=== PATIENT | male | born 1975 | race Caucasian/White ===

== ENCOUNTER 2019-03-09 12:04 | Emergency (ER) | payer OTHER, SELFPAY ==
[2019-03-09 12:05] VITALS: BP 171/125; PULSE 101; RESP 15; TEMP 37.2; O2SAT 98; BMI 35.4
--- NOTE | 2019-03-09 12:26 | CT_ITS ---
STUDY: CT ABDOMEN AND PELVIS WITH CONTRAST REASON FOR EXAM: Male, 43 years old. Left inguinal pain/left pelvic pain. History of prior bilateral inguinal hernia repair. RADIATION DOSAGE (If Supplied By Facility): CTDIvol = ( 14.18 ) mGy, DLP = ( 919.18 ) mGycm TECHNIQUE: Transaxial images were obtained from the dome of the diaphragm to the symphysis pubis with oral contrast. IV/Oral Isovue 300 100 was administered. Sagittal and coronal images were reconstructed. Individualized dose optimization techniques were used for this CT. COMPARISON: None. FINDINGS: Minimal increased markings in the posterior medial segment of the left lower lobe. This may represent mild atelectasis and/or scarring. The visualized portions of the heart are within normal limits. There is decreased attenuation of the liver consistent with steatosis. Normal gallbladder and extrahepatic biliary system. Normal spleen. Normal pancreas. Normal bilateral adrenal glands. Normal right kidney. Normal left kidney. There is a small hiatal hernia. Normal small intestine. Normal colon. The appendix is visualized and appears normal. Normal abdominal aorta. Normal inferior vena cava. There is borderline retroperitoneal lymphadenopathy with enlarged nodes no greater than 10mm in the short axis diameter. Distended urinary bladder. There is a small umbilical hernia containing fat. Small bilateral inguinal hernias. Nondilated small bowel loops is seen in the right inguinal hernia. Normal osseous structures. CT/Abdomen/Pelvis WITH Contrast IMPRESSION: Distended urinary bladder. Small bilateral inguinal hernias slightly larger on the right side containing nondilated small bowel. Fatty infiltration of the liver. Electronically Signed: Arturo Celis, at 14:36 EST , Service support ,
[2019-03-09 12:40] LABS: Bacteria 0 SEEN /hpf (None Seen); Mucous, Urine 0 SEEN /hpf (<or=2+); Red Blood Cells-Urine 0 SEEN /hpf (0-5); Squamous Epithelial Cells - UA 0 SEEN /hpf (0-5); White Blood Cells 0 SEEN /hpf (0-5)
[2019-03-09 12:42] LABS: Color, Urine Yellow (Yellow); Glucose, Dipstick Normal (Normal); Ketone-Dipstick Negative (Negative); Leukocyte Esterase-Dipstick Negative /ul (Negative); Nitrite-Dipstick Negative (Negative); Occult Blood-Urine Negative /ul (Negative); Protein-Dipstick Negative (Negative); Specific Gravity, Urine 1.005 (1.002-1.030); Urine Bilirubin Dipstick Negative (Negative); Urine Clarity Clear (Clear); Urine Urobilinogen Normal (Normal)
[2019-03-09 12:44] VITALS: BP 171/125; PULSE 101; RESP 15; TEMP 37.2; O2SAT 98
[2019-03-09] MEDS: 0.9% Normal Saline 1,000 ML 125 ML IV (12:55)
[2019-03-09 13:08] LABS: Absolute Lymphocyte Count 2.35 X10^3/uL (0.83-4.51); Absolute Neutrophil Count 4.3 X10^3/uL (2.0-7.7); Basophil# 0.06 X10^3/uL; Basophil% 0.7 % (0-1); Eosinophil# 0.14 X10^3/uL; Eosinophils% 1.7 % (0-5); Hematocrit 46.2 % (40-54); Hemoglobin 14.7 g/dL (13.0-16.5); Lymphocyte # 2.35 X10^3/ul (4.0); Lymphocyte % 29.1 % (19-41); Mean Corp Hgb Conc 31.8 g/dL (32-36); Mean Corpuscular Hgb 28.5 pg (27.0-32.0); Mean Corpuscular Volume 89.7 fL (80-94); Mean Platelet Vol. 10.6 fl (6.2-12.0); Monocyte# 1.12 X10^3/uL; Monocyte% 13.9 % (0-10); NRBC Flagged by Analyzer 0 % (0-5); Neutrophil # 4.33 X10^3/uL (2.7-7.7); Neutrophil % 53.7 % (47-70); Platelet Count 214 K/mm3 (150-450); RBC Distribution Width CV 13.4 % (11.6-14.6); RBC Distribution Width SD 44.5 fl (35.1-43.9); Red Blood Count 5.15 M/mm3 (4.6-6.2); White Blood Count 8.1 K/mm3 (4.4-11.0)
[2019-03-09 13:18] LABS: Anion Gap 6 (5-15); BUN 12 mg/dL (7-18); BUN/Creat Ratio 13.3 RATIO (10-20); Calcium,Total 8.8 mg/dL (8.5-10.1); Chloride 105 mmol/L (98-107); EST Glomerular Filtration Rate 97 mL/min (>60); Est Glom Filt Rate - Afr Amer 117 mL/min (>60); Estimated Creatinine Clearance 107.02 ml/min; Glucose 100 mg/dL (74-106); Sodium Level 140 mmol/L (136-145)
[2019-03-09 13:32] LABS: Lactic Acid 1.4 mmol/L (0.4-2.0)
[2019-03-09 14:46] VITALS: BP 152/104; PULSE 87; RESP 16; O2SAT 99
--- NOTE | 2019-03-09 15:46 | ED.DCSUM_ITS ---
- ER Visit Summary Date of Service: 03/09/19 Chief Complaint: [Abdominal pain] History of Present Illness: The patient is a 43 M [presents to the emergency department with pain in his left groin area x2 to 3 months off and on. Patient states that the pains been continuous over the last 24 hours. Patient has pain with movement of the leg. Patient denies any pain in his back. He denies nausea or vomiting. He denies any fever. He denies any injury. Patient has history of prior hernia repair with mesh 6 or 7 years ago. Denies any blood in stool or black tarry stool.] Physical Examination: [HEENT-PERRLA, EOMI. Cranial nerves II through XII grossly intact. TMs clear. Mucous membranes moist. No adenopathy. Cardiovascular-regular rate and rhythm without murmur or ectopy Lungs-clear to auscultation, chest wall stable without crepitus or subcu emphysema Abdomen-normoactive bowel sounds, soft. Patient has tenderness palpation over the left inguinal lower abdomen that seems to reproduce his pain. I do not palpate any obvious masses. Patient has no rebound, rigidity, or peritoneal signs. No discoloration to the skin noted. exam-patient is a circumcised male. No masses palpated in the inguinal canals. Testicles have a normal lie and they are nontender. Patient has normal cremasteric reflexes. Back exam-he has no tenderness over the lumbar or thoracic spine. Negative straight leg raises. Extremities-intact ?4, normal range of motion, normal pulses, atraumatic] Test Results: [CBC with differential obtained was normal. Chemistries normal. Urinalysis normal. Lactate was 1.4. CT scan of the abdomen pelvis showed distended urinary bladder and small bilateral inguinal hernias the right one contained small amount of small bowel that was nondistended.] Emergency Department Course and Treatment: [Patient was medicated with morphine and Zofran.] Treatment Plan: [Given a prescription for [place] for pain. Patient will be referred to primary care physician transportation specialist for no doc to follow-up within next 3 to 5 days. Patient advised to return if worsening pain, fever, vomiting, or conditions worsen anyway.] Disposition: [Discharged home in stable condition.] Impression: [Abdominal pain-etiology uncertain] This note was generated with [employer] software. It may contain incorrect words, spelling, and punctuation that were not noted in review of the chart prior to signing ED Disposition - Plan for ED Patient: Referrals: Care Physician,No Primary [Primary Care Provider] -
--- NOTE | 2019-03-09 15:49 | ED.DEP ---
ED Disposition - Plan for ED Patient: Instructions: ABDOMINAL PAIN, Unkown Cause, (Male) Prescriptions: Hydrocodone Bitart/Apap 5-325 [[place] 5MG-325MG] 1 tab PO Q4H PRN PRN 2 Days #10 tab PRN Reason: Pain Prescription Printed Referrals: Care Physician,No Primary [Primary Care Provider] - Robbie Villar MD [STAFF PHYSICIAN] - 3-5 Days
[2019-03-09 16:12] VITALS: BP 138/100; PULSE 74; RESP 16; TEMP 37.1; O2SAT 100
== END 2019-03-09 16:14 | disposition home or self-care (01) ==
LOC: ED 12:38
PROVIDERS: Emergency Provider Emergency Medicine
DX: R10.9 Unspecified abdominal pain (principal); K40.20 Bilateral inguinal hernia, without obstruction or gangrene, not specified as recurrent; M79.606 Pain in leg, unspecified; F17.220 Nicotine dependence, chewing tobacco, uncomplicated
CPT/HCPCS: 74177; 80048; 81001; 83605; 85025; 96360; 96361; 99283; J7030; Q9967; A4216; J2405

== ENCOUNTER 2019-04-14 20:41 | Emergency (ER) | payer OTHER, SELFPAY ==
[2019-04-06 16:25] VITALS: BMI 35.4
[2019-04-14 20:42] VITALS: BP 182/121; PULSE 92; RESP 18; TEMP 37; O2SAT 98; BMI 34.9
--- NOTE | 2019-04-14 21:10 | ED.DCSUM_ITS ---
- ER Visit Summary Date of Service: 04/14/19 Chief Complaint: Cough History of Present Illness: The patient is a 43 M who presents with a cough that is been getting progressively worse over the past week. Patient states he has been having some vomiting after his coughing. Patient states that today he has been coughing hard and it is causing some epistaxis. Patient states he was recently started on quinapril for his blood pressure. Patient states his cough is gotten worse since that time. Patient denies any fevers or chills. Patient admits to some pain in his chest with coughing. Patient admits to some nausea and vomiting after coughing. Patient admits to a headache. Patient states he has been having difficulty keeping his blood pressure medicine down today. Physical Examination: Vital signs are stable except for an elevated blood pressure of 182/121. Patient is afebrile. Patient is in no acute distress. Oral mucosa is pink and moist. Nasal mucosa shows some epistaxis from the left nares. Neck is supple. Trachea is midline. There is no JVD. Heart was reg ular rate and rhythm. Lungs are clear and equal bilaterally. Abdomen is soft and nontender. Cranial nerves II through XII are intact. There are no focal motor or sensory deficits noted. Test Results: CBC, basic metabolic profile, PT with INR, and PTT were obtained and were all within normal limits. Troponin was normal. Emergency Department Course and Treatment: Patient was given a dose of labetalol here. Patient's blood pressure improved to 154/108. Patient states his cough and headache was feeling better. Patient was advised that the symptoms may be blood pressure related. Patient was instructed to follow-up with his primary care physician in 3 to 5 days for further evaluation and management of his blood pressure. Patient was also advised that his quinapril may be causing some of his cough. Patient understood and was agreeable with the plan. All questions were answered. Disposition: Discharge home Impression: 1. Cough 2. Hypertension This note was generated with [employer] software. It may contain incorrect words, spelling, and punctuation that were not noted in review of the chart prior to signing ED Disposition - Plan for ED Patient: Disposition: Home or Assisted Living Diagnosis: Cough, Hypertension Instructions: COUGH, Chronic, Uncertain Cause, (Adult), HYPERTENSION, Established Referrals: Care Physician,No Primary [NON-STAFF] - Robbie Villar MD [Primary Care Provider] - 3-5 Days
[2019-04-14 21:29] LABS: Absolute Lymphocyte Count 3.38 X10^3/uL (0.83-4.51); Absolute Neutrophil Count 3.7 X10^3/uL (2.0-7.7); Basophil# 0.06 X10^3/uL; Basophil% 0.7 % (0-1); Eosinophil# 0.19 X10^3/uL; Eosinophils% 2.2 % (0-5); Hematocrit 45.6 % (40-54); Hemoglobin 14.8 g/dL (13.0-16.5); Lymphocyte # 3.38 X10^3/ul (4.0); Lymphocyte % 38.9 % (19-41); Mean Corp Hgb Conc 32.5 g/dL (32-36); Mean Corpuscular Volume 89.2 fL (80-94); Mean Platelet Vol. 10.5 fl (6.2-12.0); Monocyte# 1.34 X10^3/uL; Monocyte% 15.4 % (0-10); NRBC Flagged by Analyzer 0 % (0-5); Neutrophil # 3.66 X10^3/uL (2.7-7.7); Neutrophil % 42.2 % (47-70); Platelet Count 213 K/mm3 (150-450); RBC Distribution Width CV 13.4 % (11.6-14.6); RBC Distribution Width SD 43.9 fl (35.1-43.9); Red Blood Count 5.11 M/mm3 (4.6-6.2); White Blood Count 8.7 K/mm3 (4.4-11.0)
[2019-04-14 21:31] VITALS: BP 169/114; PULSE 92; RESP 18; TEMP 37; O2SAT 98
[2019-04-14 21:50] LABS: Anion Gap 8 (5-15); BUN 10 mg/dL (7-18); BUN/Creat Ratio 10.5 RATIO (10-20); Calcium,Total 8.6 mg/dL (8.5-10.1); Chloride 105 mmol/L (98-107); Creatinine, Serum 0.95 mg/dL (0.70-1.30); EST Glomerular Filtration Rate 91 mL/min (>60); Est Glom Filt Rate - Afr Amer 110 mL/min (>60); Estimated Creatinine Clearance 101.39 ml/min; Glucose 96 mg/dL (74-106); Potassium 3.8 mmol/L (3.5-5.1); Sodium Level 137 mmol/L (136-145)
[2019-04-14 21:56] LABS: International Normalized Ratio 1.1; Prothrombin Time (Protime)PT. 13.7 SECONDS (11.7-14.9)
[2019-04-14 21:57] LABS: Partial Thromboplast Time 29.9 Seconds (24.1-36.2)
[2019-04-14 22:15] VITALS: BP 152/108; PULSE 81; RESP 16; TEMP 37.1; O2SAT 98
[2019-04-14 22:34] VITALS: BP 160/106; PULSE 79; RESP 16; O2SAT 98
== END 2019-04-14 22:35 | disposition home or self-care (01) ==
PROVIDERS: Emergency Provider Emergency Medicine; Family Provider Family Medicine; PCP Family Medicine
DX: R05 Cough (principal); I10 Essential (primary) hypertension; Z72.0 Tobacco use
CPT/HCPCS: 80048; 84484; 85025; 85610; 85730; 96374; 99284; A4216

== ENCOUNTER → 2019-04-29 17:26 | Outpatient (CLI) | payer OTHER, SELFPAY ==
[2019-04-14 20:42] VITALS: BMI 34.9
--- NOTE | 2019-04-29 17:30 | RAD_ITS ---
STUDY: X-RAY CHEST REASON FOR EXAM: Male, 43 years old. Cough TECHNIQUE: PA and lateral views of the chest. COMPARISON: None. FINDINGS: The lungs are clear and expanded. There is no demonstrated pleural abnormality. Normal size heart. Normal mediastinum and peter. Normal visualized pulmonary arteries. Normal visualized aortic arch and descending thoracic aorta. There are diffuse degenerative changes of the visualized thoracic spine. There is healed left sixth rib fracture. There is no demonstrated abnormality of the visualized soft tissue structures of the upper abdomen. RAD/Chest PA and Lateral IMPRESSION: Degenerative changes, as described above. No demonstrated acute cardiopulmonary process. Electronically Signed: Seth Hammer MD at 18:45 EST , Service support ,
[2019-04-29 17:54] LABS: Absolute Lymphocyte Count 3.16 X10^3/uL (0.83-4.51); Absolute Neutrophil Count 3.8 X10^3/uL (2.0-7.7); Basophil# 0.06 X10^3/uL; Basophil% 0.7 % (0-1); Eosinophil# 0.22 X10^3/uL; Eosinophils% 2.5 % (0-5); Hematocrit 44.1 % (40-54); Hemoglobin 14.1 g/dL (13.0-16.5); Lymphocyte # 3.16 X10^3/ul (4.0); Lymphocyte % 36.3 % (19-41); Mean Corpuscular Hgb 28.6 pg (27.0-32.0); Mean Corpuscular Volume 89.5 fL (80-94); Mean Platelet Vol. 10.2 fl (6.2-12.0); Monocyte# 1.42 X10^3/uL; Monocyte% 16.3 % (0-10); NRBC Flagged by Analyzer 0 % (0-5); Neutrophil # 3.79 X10^3/uL (2.7-7.7); Neutrophil % 43.6 % (47-70); Platelet Count 246 K/mm3 (150-450); RBC Distribution Width CV 13.4 % (11.6-14.6); RBC Distribution Width SD 43.8 fl (35.1-43.9); Red Blood Count 4.93 M/mm3 (4.6-6.2); White Blood Count 8.7 K/mm3 (4.4-11.0)
[2019-04-29 18:43] LABS: ALB/GLOB Ratio 0.9 RATIO (0.9-2.4); AST(SGOT) 42 U/L (15-37); Alanine Aminotransfer ALT/SGPT 75 U/L (16-61); Albumin, Serum 3.9 g/dL (3.2-5.0); Alkaline Phosphatase 98 U/L (45-117); Anion Gap 3 (5-15); BUN 16 mg/dL (7-18); BUN/Creat Ratio 14.4 RATIO (10-20); CRP, High Sensitivity Cardiac 3.67 mg/L; Calcium,Total 8.8 mg/dL (8.5-10.1); Chloride 105 mmol/L (98-107); Creatinine, Serum 1.11 mg/dL (0.70-1.30); EST Glomerular Filtration Rate 76 mL/min (>60); Est Glom Filt Rate - Afr Amer 92 mL/min (>60); Globulin 4.4 g/dL (2.2-4.2); Glucose 94 mg/dL (74-106); Potassium 3.8 mmol/L (3.5-5.1); Protein, Total 8.3 g/dL (6.4-8.2); Sodium Level 137 mmol/L (136-145)
[2019-04-30 10:33] LABS: Hepatitis B Surface Antibody Non-Reactive; Hepatitis B Surface Antigen Non-Reactive (Nonreactive); Hepatitis C Antibody Non-Reactive (Nonreactive)
[2019-05-04 05:06] LABS: Hepatitis A AB, Total Negative (Negative); QNTFERON TB Mitogen Value > 10.00 IU/mL (.); QNTFERON TB Nil Value 0.03 IU/mL (.); QNTFERON TB1+ Ag Value 0.82 IU/mL (.); QNTFERON TB2+ Ag Value 0.87 IU/mL (.)
[2019-05-04 09:55] LABS: H. Pylori Antibody (IgG) 0.95 (0.00-0.79); Hepatitis A IgM Antibody Negative (Negative); QNTIFERON TB Positive Criteria Positive (Negative)
== END ==
PROVIDERS: Family Provider Family Medicine; PCP Family Medicine; Referring Provider Family Medicine; Visit Provider Family Medicine
DX: I10 Essential (primary) hypertension (principal); R05 Cough
CPT/HCPCS: 36415; 71046; 80053; 85025; 86141; 86480; 86677; 86706; 86708; 86709; 86803; 87340

== ENCOUNTER → 2020-01-25 16:38 | Outpatient (CLI) | payer OTHER, SELFPAY ==
[2020-01-25 18:02] LABS: ALB/GLOB Ratio 0.9 RATIO (0.9-2.4); AST(SGOT) 55 U/L (15-37); Alanine Aminotransfer ALT/SGPT 90 U/L (16-61); Albumin, Serum 3.8 g/dL (3.2-5.0); Alkaline Phosphatase 91 U/L (45-117); Anion Gap 4 (5-15); BUN 10 mg/dL (7-18); BUN/Creat Ratio 10.9 RATIO (10-20); Calcium,Total 8.4 mg/dL (8.5-10.1); Chloride 104 mmol/L (98-107); Creatinine, Serum 0.92 mg/dL (0.70-1.30); EST Glomerular Filtration Rate 94 mL/min (>60); Est Glom Filt Rate - Afr Amer 114 mL/min (>60); Globulin 4.4 g/dL (2.2-4.2); Glucose 91 mg/dL (74-106); Potassium 3.5 mmol/L (3.5-5.1); Protein, Total 8.2 g/dL (6.4-8.2); Sodium Level 138 mmol/L (136-145)
== END ==
PROVIDERS: PCP Family Medicine; Referring Provider Family Medicine; Visit Provider Family Medicine
DX: L30.1 Dyshidrosis [pompholyx] (principal)
CPT/HCPCS: 36415; 80053

== ENCOUNTER 2021-05-25 14:49 | Outpatient (CLI) | payer BC, SELFPAY | END 2021-05-25 23:59 | disposition home or self-care (01) | LOC: MFPLAB 14:51 → LABSPEC 14:52 | PROVIDERS: PCP Family Medicine; Referring Provider Family Medicine; Visit Provider Family Medicine | DX: U07.1 COVID-19 (principal) | CPT/HCPCS: 87635; U0003; U0005 ==

== ENCOUNTER 2021-06-15 15:04 | Outpatient (CLI) | payer BC, SELFPAY ==
[2021-06-15 17:42] LABS: Absolute Lymphocyte Count 2.78 X10^3/uL (0.83-4.51); Absolute Neutrophil Count 3.7 X10^3/uL (2.0-7.7); Basophil# 0.03 X10^3/uL; Basophil% 0.4 % (0-1); Eosinophil# 0.18 X10^3/uL; Eosinophils% 2.3 % (0-5); Hematocrit 41.4 % (40-54); Hemoglobin 13.8 g/dL (13.0-16.5); Lymphocyte # 2.78 X10^3/ul (0.83-4.51); Lymphocyte % 35.7 % (19-41); Mean Corp Hgb Conc 33.3 g/dL (32-36); Mean Corpuscular Hgb 30.1 pg (27.0-32.0); Mean Corpuscular Volume 90.4 fL (80-94); Mean Platelet Vol. 11.3 fl (6.2-12.0); Monocyte# 1.11 X10^3/uL; Monocyte% 14.2 % (0-10); NRBC Flagged by Analyzer 0 % (0-5); Neutrophil # 3.66 X10^3/uL (2.7-7.7); Platelet Count 263 K/mm3 (150-450); RBC Distribution Width CV 13.9 % (11.6-14.6); Red Blood Count 4.58 M/mm3 (4.6-6.2); White Blood Count 7.8 K/mm3 (4.4-11.0)
[2021-06-15 18:19] LABS: ALB/GLOB Ratio 0.8 RATIO (0.9-2.4); AST(SGOT) 42 U/L (15-37); Alanine Aminotransfer ALT/SGPT 53 U/L (16-61); Albumin, Serum 3.5 g/dL (3.2-5.0); Alkaline Phosphatase 95 U/L (45-117); Anion Gap 5 (5-15); BUN 11 mg/dL (7-18); BUN/Creat Ratio 12.5 RATIO (10-20); Calcium,Total 7.7 mg/dL (8.5-10.1); Chloride 107 mmol/L (98-107); Creatinine, Serum 0.88 mg/dL (0.70-1.30); EST Glomerular Filtration Rate 98 mL/min (>60); Est Glom Filt Rate - Afr Amer 119 mL/min (>60); Globulin 4.4 g/dL (2.2-4.2); Glucose 113 mg/dL (74-106); Magnesium 2.3 mg/dL (1.6-2.6); Potassium 3.4 mmol/L (3.5-5.1); Protein, Total 7.9 g/dL (6.4-8.2); Sodium Level 140 mmol/L (136-145); Thyroid Stim Hormone (TSH) 0.67 uIU/mL (0.358-3.74)
[2021-06-15 18:32] LABS: Microalbumin,Random Urine 18.4 mg/L (NO RANGE EST.); Microalbumin:Creatinine Ratio 11.8 mg/g CRE (<30 mg/g CRE)
== END 2021-06-15 23:59 | disposition home or self-care (01) ==
LOC: MFPLAB 15:08
PROVIDERS: PCP Family Medicine; Referring Provider Family Medicine; Visit Provider Family Medicine
DX: I10 Essential (primary) hypertension (principal); E66.01 Morbid (severe) obesity due to excess calories; R60.0 Localized edema; Z68.36 Body mass index [BMI] 36.0-36.9, adult
CPT/HCPCS: 36415; 80053; 82043; 82570; 83036; 83735; 84443; 85025

== ENCOUNTER → 2021-08-10 | Outpatient (CLI) | payer BC, SELFPAY ==
[2021-08-10 15:32] LABS: Anion Gap 4 (5-15); BUN 26 mg/dL (7-18); Calcium,Total 8.6 mg/dL (8.5-10.1); Chloride 108 mmol/L (98-107); Creatinine, Serum 1.24 mg/dL (0.70-1.30); EST Glomerular Filtration Rate 66 mL/min (>60); Est Glom Filt Rate - Afr Amer 80 mL/min (>60); Glucose 111 mg/dL (74-106); Potassium 4.8 mmol/L (3.5-5.1); Sodium Level 138 mmol/L (136-145)
== END | disposition home or self-care (01) ==
LOC: MFPLAB 12:15
PROVIDERS: PCP Family Medicine; Referring Provider Family Medicine; Visit Provider Family Medicine
DX: I10 Essential (primary) hypertension (principal)
CPT/HCPCS: 36415; 80048

== ENCOUNTER → 2022-02-08 | Outpatient (CLI) | payer BC, SELFPAY ==
[2022-02-08 17:47] LABS: Absolute Lymphocyte Count 3.02 X10^3/uL (0.83-4.51); Absolute Neutrophil Count 4.9 X10^3/uL (2.0-7.7); Basophil# 0.05 X10^3/uL; Basophil% 0.5 % (0-1); Eosinophil# 0.21 X10^3/uL; Eosinophils% 2.2 % (0-5); Hematocrit 36.5 % (40-54); Hemoglobin 12.1 g/dL (13.0-16.5); Lymphocyte # 3.02 X10^3/ul (0.83-4.51); Lymphocyte % 31.5 % (19-41); Mean Corp Hgb Conc 33.2 g/dL (32-36); Mean Corpuscular Hgb 30.7 pg (27.0-32.0); Mean Corpuscular Volume 92.6 fL (80-94); Mean Platelet Vol. 11.2 fl (6.2-12.0); Monocyte# 1.31 X10^3/uL; Monocyte% 13.7 % (0-10); NRBC Flagged by Analyzer 0 % (0-5); Neutrophil # 4.93 X10^3/uL (2.7-7.7); Neutrophil % 51.5 % (47-70); Platelet Count 252 K/mm3 (150-450); RBC Distribution Width CV 12.8 % (11.6-14.6); RBC Distribution Width SD 43.7 fl (35.1-43.9); Red Blood Count 3.94 M/mm3 (4.6-6.2); White Blood Count 9.6 K/mm3 (4.4-11.0)
[2022-02-08 18:22] LABS: Microalbumin,Random Urine 57.3 mg/L (NO RANGE EST.); Microalbumin:Creatinine Ratio 45.1 mg/g CRE (<30 mg/g CRE)
[2022-02-08 18:39] LABS: ALB/GLOB Ratio 0.8 RATIO (0.9-2.4); AST(SGOT) 31 U/L (15-37); Alanine Aminotransfer ALT/SGPT 43 U/L (16-61); Albumin, Serum 3.5 g/dL (3.2-5.0); Alkaline Phosphatase 89 U/L (45-117); Anion Gap 6 (5-15); BUN 21 mg/dL (7-18); BUN/Creat Ratio 16.8 RATIO (10-20); Calcium,Total 8.4 mg/dL (8.5-10.1); Chloride 105 mmol/L (98-107); Cholesterol 154 mg/dL (200); Creatinine, Serum 1.25 mg/dL (0.70-1.30); EST Glomerular Filtration Rate 65 mL/min (>60); Est Glom Filt Rate - Afr Amer 79 mL/min (>60); Globulin 4.4 g/dL (2.2-4.2); Glucose 92 mg/dL (74-106); Potassium 4.5 mmol/L (3.5-5.1); Protein, Total 7.9 g/dL (6.4-8.2); Sodium Level 138 mmol/L (136-145); Triglycerides 109 mg/dL
[2022-02-08 19:20] LABS: Hemoglobin A1c 6.2 % (3.8-5.6)
== END | disposition home or self-care (01) ==
PROVIDERS: PCP Family Medicine; Referring Provider Family Medicine; Visit Provider Family Medicine
DX: E88.81 Metabolic syndrome and other insulin resistance (principal); I10 Essential (primary) hypertension
CPT/HCPCS: 36415; 80053; 82043; 82465; 82570; 83036; 84478; 85025

== ENCOUNTER → 2022-08-23 | Outpatient (CLI) | payer BC, SELFPAY ==
[2022-08-23 16:14] LABS: ALB/GLOB Ratio 0.8 RATIO (0.9-2.4); AST(SGOT) 41 U/L (15-37); Alanine Aminotransfer ALT/SGPT 56 U/L (16-61); Albumin, Serum 3.6 g/dL (3.2-5.0); Alkaline Phosphatase 74 U/L (45-117); Anion Gap 8 (5-15); BUN 24 mg/dL (7-18); BUN/Creat Ratio 17.3 RATIO (10-20); Calcium,Total 8.5 mg/dL (8.5-10.1); Chloride 105 mmol/L (98-107); Creatinine, Serum 1.39 mg/dL (0.70-1.30); EST Glomerular Filtration Rate 58 mL/min (>60); Est Glom Filt Rate - Afr Amer 70 mL/min (>60); Globulin 4.6 g/dL (2.2-4.2); Glucose 83 mg/dL (74-106); Potassium 3.9 mmol/L (3.5-5.1); Protein, Total 8.2 g/dL (6.4-8.2); Sodium Level 140 mmol/L (136-145)
[2022-08-23 16:17] LABS: Absolute Lymphocyte Count 3.34 X10^3/uL (0.83-4.51); Absolute Neutrophil Count 4.8 X10^3/uL (2.0-7.7); Basophil# 0.05 X10^3/uL; Basophil% 0.5 % (0-1); Eosinophil# 0.26 X10^3/uL; Eosinophils% 2.6 % (0-5); Hemoglobin 11.3 g/dL (13.0-16.5); Lymphocyte # 3.34 X10^3/ul (0.83-4.51); Lymphocyte % 33.7 % (19-41); Mean Corp Hgb Conc 31.4 g/dL (32-36); Mean Corpuscular Hgb 29.2 pg (27.0-32.0); Mean Platelet Vol. 10.8 fl (6.2-12.0); Monocyte# 1.43 X10^3/uL; Monocyte% 14.4 % (0-10); NRBC Flagged by Analyzer 0 % (0-5); Neutrophil # 4.76 X10^3/uL (2.7-7.7); Neutrophil % 48.1 % (47-70); Platelet Count 252 K/mm3 (150-450); RBC Distribution Width CV 13.5 % (11.6-14.6); RBC Distribution Width SD 45.9 fl (35.1-43.9); Red Blood Count 3.87 M/mm3 (4.6-6.2); White Blood Count 9.9 K/mm3 (4.4-11.0)
== END | disposition home or self-care (01) ==
LOC: MFPLAB 11:54
PROVIDERS: PCP Family Medicine; Visit Provider Family Medicine
DX: I10 Essential (primary) hypertension (principal)
CPT/HCPCS: 36415; 80053; 85025

== ENCOUNTER → 2022-11-15 | Outpatient (CLI) | payer BC, SELFPAY ==
[2022-11-15 15:09] LABS: Absolute Lymphocyte Count 2.74 X10^3/uL (0.83-4.51); Absolute Neutrophil Count 4.7 X10^3/uL (2.0-7.7); Basophil# 0.05 X10^3/uL; Basophil% 0.6 % (0-1); Eosinophil# 0.31 X10^3/uL; Eosinophils% 3.4 % (0-5); Hematocrit 39.2 % (40-54); Hemoglobin 12.8 g/dL (13.0-16.5); Lymphocyte # 2.74 X10^3/ul (0.83-4.51); Lymphocyte % 30.1 % (19-41); Mean Corp Hgb Conc 32.7 g/dL (32-36); Mean Corpuscular Hgb 30.5 pg (27.0-32.0); Mean Corpuscular Volume 93.6 fL (80-94); Mean Platelet Vol. 10.9 fl (6.2-12.0); Monocyte# 1.25 X10^3/uL; Monocyte% 13.8 % (0-10); NRBC Flagged by Analyzer 0 % (0-5); Neutrophil # 4.68 X10^3/uL (2.7-7.7); Neutrophil % 51.4 % (47-70); Platelet Count 231 K/mm3 (150-450); RBC Distribution Width CV 14.4 % (11.6-14.6); RBC Distribution Width SD 49.3 fl (35.1-43.9); Red Blood Count 4.19 M/mm3 (4.6-6.2); White Blood Count 9.1 K/mm3 (4.4-11.0)
[2022-11-15 15:37] LABS: ALB/GLOB Ratio 0.8 RATIO (0.9-2.4); AST(SGOT) 55 U/L (15-37); Alanine Aminotransfer ALT/SGPT 84 U/L (16-61); Albumin, Serum 3.3 g/dL (3.2-5.0); Alkaline Phosphatase 78 U/L (45-117); Anion Gap 6 (5-15); BUN 12 mg/dL (7-18); BUN/Creat Ratio 11.7 RATIO (10-20); Calcium,Total 8.3 mg/dL (8.5-10.1); Chloride 109 mmol/L (98-107); Creatinine, Serum 1.03 mg/dL (0.70-1.30); EST Glomerular Filtration Rate 82 mL/min (>60); Est Glom Filt Rate - Afr Amer 99 mL/min (>60); Globulin 4.4 g/dL (2.2-4.2); Glucose 82 mg/dL (74-106); Potassium 3.8 mmol/L (3.5-5.1); Protein, Total 7.7 g/dL (6.4-8.2); Sodium Level 141 mmol/L (136-145)
[2022-11-15 15:45] LABS: Microalbumin,Random Urine 27.5 mg/L (NO RANGE EST.); Microalbumin:Creatinine Ratio 9.2 mg/g CRE (<30 mg/g CRE)
[2022-11-15 17:24] LABS: Hemoglobin A1c 5.8 % (3.8-5.6)
== END | disposition home or self-care (01) ==
LOC: MTLAB 13:12
PROVIDERS: PCP Family Medicine; Referring Provider Family Medicine; Visit Provider Family Medicine
DX: I10 Essential (primary) hypertension (principal); E88.81 Metabolic syndrome and other insulin resistance
CPT/HCPCS: 36415; 80053; 82043; 82570; 83036; 85025

== ENCOUNTER → 2022-11-21 | Outpatient (CLI) | payer BC, SELFPAY ==
[2022-11-21 18:10] LABS: ALB/GLOB Ratio 0.8 RATIO (0.9-2.4); AST(SGOT) 48 U/L (15-37); Alanine Aminotransfer ALT/SGPT 64 U/L (16-61); Albumin, Serum 3.5 g/dL (3.2-5.0); Alkaline Phosphatase 78 U/L (45-117); Anion Gap 7 (5-15); BUN 12 mg/dL (7-18); BUN/Creat Ratio 10.9 RATIO (10-20); Calcium,Total 8.4 mg/dL (8.5-10.1); Chloride 108 mmol/L (98-107); EST Glomerular Filtration Rate 76 mL/min (>60); Est Glom Filt Rate - Afr Amer 91 mL/min (>60); Globulin 4.3 g/dL (2.2-4.2); Glucose 122 mg/dL (74-106); Potassium 3.2 mmol/L (3.5-5.1); Protein, Total 7.8 g/dL (6.4-8.2); Sodium Level 141 mmol/L (136-145)
[2022-11-21 18:45] LABS: Absolute Lymphocyte Count 2.69 X10^3/uL (0.83-4.51); Absolute Neutrophil Count 5.2 X10^3/uL (2.0-7.7); Basophil# 0.05 X10^3/uL; Basophil% 0.5 % (0-1); Eosinophil# 0.16 X10^3/uL; Eosinophils% 1.7 % (0-5); Hematocrit 38.1 % (40-54); Hemoglobin 12.2 g/dL (13.0-16.5); Lymphocyte # 2.69 X10^3/ul (0.83-4.51); Lymphocyte % 28.7 % (19-41); Mean Corpuscular Hgb 29.8 pg (27.0-32.0); Mean Corpuscular Volume 93.2 fL (80-94); Mean Platelet Vol. 11.1 fl (6.2-12.0); Monocyte# 1.22 X10^3/uL; NRBC Flagged by Analyzer 0 % (0-5); Neutrophil % 55.7 % (47-70); Platelet Count 229 K/mm3 (150-450); RBC Distribution Width CV 14.4 % (11.6-14.6); RBC Distribution Width SD 49.6 fl (35.1-43.9); Red Blood Count 4.09 M/mm3 (4.6-6.2); White Blood Count 9.4 K/mm3 (4.4-11.0)
[2022-11-21 20:31] LABS: Hemoglobin A1c 5.8 % (3.8-5.6)
== END | disposition home or self-care (01) ==
LOC: MFPLAB 16:54
PROVIDERS: PCP Family Medicine; Visit Provider Family Medicine
DX: E88.81 Metabolic syndrome and other insulin resistance (principal); I10 Essential (primary) hypertension; R79.89 Other specified abnormal findings of blood chemistry
CPT/HCPCS: 36415; 80053; 83036; 85025

== ENCOUNTER → 2022-11-29 | Outpatient (CLI) | payer SELFPAY | END | disposition home or self-care (01) | LOC: MFPLAB 11:41 | PROVIDERS: PCP Family Medicine; Visit Provider Family Medicine | DX: R69 Illness, unspecified (principal) ==

== ENCOUNTER → 2023-08-05 | Outpatient (CLI) | payer BC, SELFPAY ==
--- NOTE | 2023-08-05 14:27 | VDLE_ITS ---
Reason For Study: pain RIGHT LEFT GSV is normal. CFV is compressible, spontaneous, phasic, CFV is compressible, spontaneous, phasic, competent, and demonstrates normal competent and demonstrates normal augmentation. augmentation. FV is compressible, spontaneous, phasic, competent and demonstrates normal augmentation. POP V is compressible, spontaneous, phasic, competent and demonstrates normal augmentation. T/P Trunk is compressible. PTV is compressible. RT PerV is compressible. Procedure This is a venous duplex using B-mode, color flow and spectral Doppler. Exam performed in department. The exam was diagnostic. A preliminary report was called and/or faxed to Carley Higginbotham. VL/Venous Duplex US, Unilateral Interpretation Summary Deep veins of the right lower extremity are patent and compressible segmentally . There is no evidence of right lower extremity deep vein thrombosis. The right great sapheno us vein appears patent and compressible segmentally. Ordering Physician: Carley Higginbotham Performed By: Valente Dorado RVT and Student
== END | disposition home or self-care (01) ==
LOC: CVS 14:25
PROVIDERS: PCP Family Medicine; Referring Provider Nurse Practitioner Family; Visit Provider Nurse Practitioner Family
DX: M79.604 Pain in right leg (principal)
CPT/HCPCS: 93971

== ENCOUNTER → 2023-08-07 | Outpatient (CLI) | payer BC, SELFPAY ==
[2023-08-07 18:10] LABS: Absolute Lymphocyte Count 1.91 X10^3/uL (0.83-4.51); Absolute Neutrophil Count 7.1 X10^3/uL (2.0-7.7); Basophil# 0.06 X10^3/uL; Basophil% 0.6 % (0-1); Hematocrit 38.2 % (40-54); Hemoglobin 12.3 g/dL (13.0-16.5); Lymphocyte # 1.91 X10^3/ul (0.83-4.51); Lymphocyte % 19.2 % (19-41); Mean Corp Hgb Conc 32.2 g/dL (32-36); Mean Corpuscular Hgb 29.2 pg (27.0-32.0); Mean Corpuscular Volume 90.7 fL (80-94); Mean Platelet Vol. 11.3 fl (6.2-12.0); Monocyte# 0.72 X10^3/uL; Monocyte% 7.2 % (0-10); NRBC Flagged by Analyzer 0 % (0-5); Neutrophil # 7.09 X10^3/uL (2.7-7.7); Neutrophil % 71.2 % (47-70); Platelet Count 241 K/mm3 (150-450); RBC Distribution Width CV 14.3 % (11.6-14.6); RBC Distribution Width SD 47.4 fl (35.1-43.9); Red Blood Count 4.21 M/mm3 (4.6-6.2)
[2023-08-07 18:45] LABS: ALB/GLOB Ratio 0.9 RATIO (0.9-2.4); AST(SGOT) 37 U/L (15-37); Alanine Aminotransfer ALT/SGPT 56 U/L (16-61); Albumin, Serum 3.6 g/dL (3.2-5.0); Alkaline Phosphatase 80 U/L (45-117); Anion Gap 5 (5-15); BUN 18 mg/dL (7-18); BUN/Creat Ratio 15.5 RATIO (10-20); CRP 4.96 mg/L (0.0-3.0); Calcium,Total 8.4 mg/dL (8.5-10.1); Chloride 105 mmol/L (98-107); Creatinine, Serum 1.16 mg/dL (0.70-1.30); EST Glomerular Filtration Rate 71 mL/min (>60); Est Glom Filt Rate - Afr Amer 86 mL/min (>60); Globulin 4.2 g/dL (2.2-4.2); Glucose 174 mg/dL (74-106); Potassium 3.5 mmol/L (3.5-5.1); Protein, Total 7.8 g/dL (6.4-8.2); Sodium Level 138 mmol/L (136-145)
== END | disposition home or self-care (01) ==
LOC: MFPLAB 15:03
PROVIDERS: PCP Family Medicine; Visit Provider Family Medicine
DX: I10 Essential (primary) hypertension (principal); J18.9 Pneumonia, unspecified organism
CPT/HCPCS: 36415; 80053; 85025; 86140

== ENCOUNTER 2023-08-10 15:24 | Emergency (ER) | payer BC, SELFPAY ==
[2023-08-10] VITALS (14 sets, daily range): BP systolic 154–163; BP diastolic 95–122; PULSE 104–114; RESP 17–23; TEMP 36.1–36.8; O2SAT 93–98; BMI 37.6
--- NOTE | 2023-08-10 15:44 | CT_ITS ---
STUDY: CT Abdomen And Pelvis W/ Contrast Injection 08/10/2023 5:34 PM REASON FOR EXAM: Male, 47 years old. ABDOMINAL PAIN abdominal pain umbilical hernia TECHNIQUE: Transaxial images were obtained without oral contrast, and IV 100mL Isovue-370 intravenous contrast. Individualized dose optimization techniques were used for this CT. COMPARISON: None FINDINGS: The visualized lung bases are unremarkable. The visualized portions of the heart are within normal limits. Unremarkable liver. Unremarkable gallbladder and extrahepatic biliary system. Unremarkable spleen. Unremarkable pancreas. Unremarkable bilateral adrenal glands. No acute findings of the right kidney. No acute findings of the left kidney. Retroaortic left renal vein. Unremarkable visualized stomach. Unremarkable small intestine. There are multiple colonic diverticula consistent with diverticulosis. The appendix is visualized and appears unremarkable. There are no acute findings of the abdominal aorta. Unremarkable inferior vena cava. Subcentimeter mesenteric lymph nodes. The urinary bladder is distended. This can suggest urinary retention. Unremarkable abdominal wall. There are diffuse degenerative changes of the visualized lumbar spine. CT/Abdomen/Pelvis W IV Cont ONLY IMPRESSION: (NOT LISTED IN ORDER OF SIGNIFICANCE) The urinary bladder is distended. This can suggest urinary retention. Other findings as above. Electronically Signed: Brandon Marlow MD at 17:36 EDT ,
--- NOTE | 2023-08-10 15:44 | EKG12_ITS ---
Test Reason : EDEMA Blood Pressure : / mmHG Vent. Rate : 118 BPM Atrial Rate : 118 BPM P-R Int : 128 ms QRS Dur : 092 ms QT Int : 352 ms P-R-T Axes : 069 037 061 degrees QTc Int : 493 ms Sinus tachycardia Otherwise normal ECG Confirmed by Jhony Bloom ([id number]), commercial production editor NANDO ZAMUDIO ([id number]) on 08/11/2023 10:00:00 AM Referred By: Confirmed By:Jhony Bloom
--- NOTE | 2023-08-10 15:45 | EX.ED.DYSGE1 ---
HPI History of Present Illness Chief Complaint: Edema Informant: patient and spouse/S.O. Narrative Narrative: 47-year-old male presenting to the emergency room with umbilical hernia pain and right leg swelling. Patient states that on 30 July he noticed that his right leg was significantly more swollen than his left leg. He has had some swelling in the legs but the right leg is significantly worse. He also noticed that his umbilical hernia which she has had repaired in the past began to hurt him. He has not had any constipation nausea vomiting. No fevers. He states that on Friday he saw a nurse practitioner who obtained a duplex ultrasound that was negative and he was placed on prednisone and Flexeril. He had blood work drawn later in the week to ensure normal creatinine CRP and for normal white count hemoglobin at 12 (baseline for patient). He is currently denying any shortness of breath. He denies any known cardiac history other than hypertension. He does not have a diagnosis of sleep apnea. He does not feel more bloated than normal. He notes normal urination. [facility] Medical History Acute bronchitis, unspecified Acute maxillary sinusitis, unspecified Arthritis Contact with and (suspected) exposure to other viral communicable diseases Groin pain, chronic, left Hay fever Hypertension Home Medications diphenhydramine HCl 25 mg capsule (Benadryl) 25 mg PO QHS 04/23/20 [History Last Taken Unknown] cetirizine 10 mg tablet (24Hour Allergy) 10 mg PO DAILY PRN allergy symptoms 08/10/23 [History Last Taken Unknown] cyclobenzaprine 5 mg tablet 5 mg PO Q8H PRN muscle relaxer 08/10/23 [History Last Taken Unknown] furosemide 40 mg tablet (Lasix) 40 mg PO BID #14 tabs 08/10/23 [Rx Last Taken Unknown] ibuprofen 800 mg tablet (IBU) 800 mg PO Q8H 08/10/23 [History Last Taken Unknown] omeprazole magnesium 20 mg tablet,delayed release (Prilosec OTC) 40 mg PO DAILY 08/10/23 [History Last Taken Unknown] simethicone 180 mg capsule (Gas Relief (simethicone)) 180 mg PO DAILY PRN gas 08/10/23 [History Last Taken Unknown] spironolactone 25 mg-hydrochlorothiazide 25 mg tablet 0.5 tab PO DAILY 08/10/23 [History Last Taken Unknown] telmisartan 40 mg tablet 40 mg PO DAILY 08/10/23 [History Last Taken Unknown] Allergy/AdvReac Type Severity Reaction Status Date / Time cat dander Allergy Mild NEEDS Verified 08/10/23 17:32 FOLLOW-UP Environmental Allergies: Allergy Mild NEEDS Verified 08/10/23 17:32 Uncoded FOLLOW-UP [dust] Penicillins AdvReac Mild Hives Verified 08/10/23 17:32 Surgical History History of hernia repair S/P tonsillectomy Social History Smoking Status: Current every day smoker tobacco type: cigarettes Smokeless tobacco user: chewing tobacco alcohol intake: current alcohol intake frequency: 3 or more drinks per day Alcohol type: beer and hard liquor ROS ROS ED Constitutional Constitutional ED: Denies chills or weight loss Eyes Eyes: Denies change in vision or diplopia ENT ENT ED: Denies ear pain, rhinorrhea or sore throat Cardiovascular Cardiovascular: Denies chest pain, orthopnea, palpitations or racing heartbeat Respiratory/Chest Respiratory/Chest: Denies cough, dyspnea or orthopnea Gastrointestinal Gastrointestinal: Reports abdominal pain; Denies diarrhea, nausea or vomiting Genitourinary Genitourinary ED: Denies dysuria, hematuria or urinary frequency Musculoskeletal Musculoskeletal: Reports other Details: Right greater than left leg swelling ; Denies arthralgias or myalgias Integumentary Denies abscess or rash Neurologic Neurologic: Denies headache(s) or weakness Psychiatric Psychiatric: Denies anxiety, depression, suicidal ideation or suicidal thoughts Endocrine Endocrinology: Denies polydipsia, polyphagia or polyuria Allergic/Immunologic Allergic/Immunologic ED: Denies mouth swelling, tongue swelling or urticaria EXAM Physical Exam Const Vital Signs: 08/10/23 15:25 08/10/23 16:01 08/10/23 16:15 Temperature 98.3 F Temperature Source Temporal Pulse Rate 112 H 111 H Respiratory Rate 20 H 19 H Respiratory Effort Normal Respiratory Pattern Normal Blood Pressure 159/108 H Blood Pressure Mean 125 Pulse Ox 98 95 Oxygen Delivery Method Room Air 08/10/23 16:30 08/10/23 16:45 08/10/23 17:00 Temperature Temperature Source Pulse Rate 104 H 112 H Respiratory Rate 22 H 17 Respiratory Effort Respiratory Pattern Blood Pressure 163/105 H 156/122 H Blood Pressure Mean 122 133 Pulse Ox 94 94 Oxygen Delivery Method 08/10/23 17:15 08/10/23 17:30 08/10/23 17:45 Temperature Temperature Source Pulse Rate 111 H 113 H 114 H Respiratory Rate 20 H 19 H 20 H Respiratory Effort Respiratory Pattern Blood Pressure 162/109 H Blood Pressure Mean 124 Pulse Ox 96 94 94 Oxygen Delivery Method 08/10/23 18:00 08/10/23 18:15 08/10/23 18:30 Temperature Temperature Source Pulse Rate 105 H 108 H 106 H Respiratory Rate 23 H 19 H 22 H Respiratory Effort Respiratory Pattern Blood Pressure 154/95 H 156/106 H Blood Pressure Mean 112 120 Pulse Ox 93 93 Oxygen Delivery Method 08/10/23 18:45 08/10/23 19:00 08/10/23 19:13 Temperature 97 F L Temperature Source Pulse Rate 108 H 104 H 110 H Respiratory Rate 22 H 17 21 H Respiratory Effort Respiratory Pattern Blood Pressure 163/110 H Blood Pressure Mean 127 Pulse Ox 95 96 94 Oxygen Delivery Method Positive well nourished, well developed and obese General Appearance ED: well developed Nutritional Appearance: obese HEENT Reports normocephalic, head/scalp atraumatic and moist mucous membranes Eyes PERRL and EOMs intact bilaterally Neck no lymphadenopathy, supple and no JVD Resp normal respiratory effort and clear to auscultation bilaterally Cardio regular rate, regular rhythm and no murmurs GI normal to inspection, nondistended, normoactive bowel sounds and non-tender GI Narrative: Small umbilical hernia nontender. Auscultation: normoactive bowel sounds Palpation: soft Back/Spine no CVA tenderness and normal ROM Extremity Extremity Narrative: Patient has right greater than left leg swelling. There is pitting edema bilaterally. Knee joints are not warm or erythematous and no significant effusions are noted. No significant tenderness on palpation. No skin discoloration. Normal capillary refill. Neuro oriented x3 and CN's II-XII intact bilaterally Sensorium / Orientation: alert Motor Exam: strength 5/5 throughout Psych mental status grossly normal Mood & Affect: Negative for depressed or tearful Skin no rashes or lesions noted and no wounds MDM MDM MDM Narrative Medical decision making narrative: My independent or potation of the chest x-ray is no acute process. EKG is sinus tachycardia. White count 9.8 hemoglobin 13.6 coags normal. BMP with creatinine 1.33 slightly elevated off of his previous. Liver enzymes showed an elevated AST at 45 ALT of 65 normal total bilirubin alk phos of 73 troponin is 6 BNP 29.6 albumin 3.6 urinalysis normal with no proteinuria. Because of the leg swelling and the unexplained tachycardia a CTA of the chest demonstrated no pulmonary embolism. CT of the abdomen pelvis demonstrated distended bladder. He was able to urinate immediately after CT. Postvoid residual volume was up at 444. He does note that he gets up and urinates multiple times per the night when he thinks is due to the diuretic that he currently takes. I do not think he needs a [place] catheter. His prostate was not noted to be significantly enlarged on CT. This may need further outpatient workup but the increased postvoid residual volume could be related to him attempting to urinate with a urinal at the bedside. I spoke with patient's primary care doctor Dr. Villar. He notes that the patient does drink alcohol on a very regular basis. I reevaluated the patient while he remains tachycardic he is also noted to be slightly shaky and diaphoretic. Our plan is to start him on twice daily Lasix at 40 mg. He is to monitor his salt which she states he typically salts his food quite heavily. We talked about compressive socks as well as elevating his legs above the level of the heart. Dr. Villar will be able to visit with him and reevaluate him later this week. Patient is comfortable with this plan History & Record Review Discussion w/independent historian: Patient and Family Additional record(s) reviewed:: Prior labs Lab Data Attestation: I reviewed the patient's lab results. Labs: Laboratory Results - last 24 hr 08/10/23 08/10/23 15:57 16:28 WBC 9.8 RBC 4.54 L Hgb 13.6 Hct 40.8 MCV 89.9 MCH 30.0 MCHC 33.3 RDW Std Deviation 47.6 H RDW Coeff of Wendy 14.6 Plt Count 252 MPV 10.4 Immature Gran % (Auto) 1.400 H Neut % (Auto) 62.5 Lymph % (Auto) 23.5 [place] % (Auto) 11.5 H Eos % (Auto) 0.4 Baso % (Auto) 0.7 Absolute Neuts (auto) 6.1 Absolute Lymphs (auto) 2.29 Nucleated RBC % 0 PT 13.5 INR 1.0 APTT 24.8 Sodium 139 Potassium 3.6 Chloride 103 Carbon Dioxide 31.0 Anion Gap 5 BUN 18 Creatinine 1.33 H Estim Creat Clear Calc 86.90 Est GFR (MDRD) Af Amer 73 Est GFR (MDRD) Non-Af 61 BUN/Creatinine Ratio 13.5 Glucose 122 H Calcium 8.0 L Total Bilirubin 0.40 AST 45 H ALT 65 H Alkaline Phosphatase 73 Troponin I High Sens 6 B-Natriuretic Peptide 29.6 Total Protein 8.2 Albumin 3.6 Globulin 4.6 H Albumin/Globulin Ratio 0.8 L Urine Color Yellow Urine Clarity Clear Urine pH 8.0 Ur Specific [place] 1.010 Urine Protein Negative Urine Glucose (UA) Normal Urine Ketones Negative Urine Occult Blood Negative Urine Nitrite Negative Urine Bilirubin Negative Urine Urobilinogen Normal Ur Leukocyte Esterase Negative Urine RBC 0 SEEN Urine WBC 0 SEEN Ur Squamous Epith Cells 0 SEEN Urine Bacteria 0 SEEN Urine Mucus 0 SEEN Radiography Diagnostic Testing: Clinical Impression(s) from Imaging Studies Abdomen/Pelvis CT 08/10/23 15:44 IMPRESSION: (NOT LISTED IN ORDER OF SIGNIFICANCE) The urinary bladder is distended. This can suggest urinary retention. Other findings as above. Electronically Signed: Brandon Marlow MD at 17:36 EDT , Chest X-Ray 08/10/23 15:58 IMPRESSION: No radiographic evidence of acute cardiopulmonary disease. Electronically Signed: Brandon Marlow MD at 19:13 EDT , Chest CTA 08/10/23 16:41 IMPRESSION: No demonstrated pulmonary embolism or arterial dissection. There are no acute findings. Electronically Signed: Brandon Marlow MD at 17:35 EDT , EKG Initial EKG: Attestation: I personally reviewed and interpreted this EKG as follows: Comments: Sinus tachycardia ventricular rate of 118 bpm Discharge Plan Triage Chief Complaint: Edema Other Complaint: Other, Pain/Inj ED Provider: Rafat Suresh Dx/Rx/DC Orders Clinical Impression: Leg pain, Lymphedema Instructions: ED Lymphedema Prescriptions: New furosemide [Lasix] 40 mg tablet 40 mg PO BID Qty: 14 0RF No Action diphenhydramine HCl [Benadryl] 25 mg capsule 25 mg PO QHS cetirizine [24Hour Allergy] 10 mg tablet 10 mg PO DAILY PRN (Reason: allergy symptoms) omeprazole magnesium [Prilosec OTC] 20 mg tablet,delayed release (DR/EC) 40 mg PO DAILY simethicone [Gas Relief (simethicone)] 180 mg capsule 180 mg PO DAILY PRN (Reason: gas) cyclobenzaprine 5 mg tablet 5 mg PO Q8H PRN (Reason: muscle relaxer) spironolacton-hydrochlorothiaz 25-25 mg tablet 0.5 tab PO DAILY telmisartan 40 mg tablet 40 mg PO DAILY ibuprofen [IBU] 800 mg tablet 800 mg PO Q8H Stand Alone Forms: ED Work / School Excuse Primary Care Provider: Robbie Villar Referrals: Robbie Villar MD [Primary Care Provider] - 3-5 Days Disposition Disposition: Home, Self Care Discharge Date/Time: 08/10/23 19:31
--- NOTE | 2023-08-10 15:58 | RAD_ITS ---
EXAM: XR CHEST, 1 VIEW CLINICAL INDICATION: hypertension TECHNIQUE: Frontal view of the chest. COMPARISON: Study done earlier today. FINDINGS: LUNGS AND PLEURAL SPACES: Unremarkable. No consolidation or edema. No pneumothorax. No effusion. HEART: Unremarkable. Cardiac silhouette not enlarged. MEDIASTINUM: Central airways and mediastinal contour are unremarkable. BONES/JOINTS: Unremarkable. No acute fracture. SOFT TISSUES: Unremarkable. RAD/Chest 1 View (Portable) IMPRESSION: No radiographic evidence of acute cardiopulmonary disease. Electronically Signed: Brandon Marlow MD at 19:13 EDT ,
[2023-08-10 16:04] LABS: Absolute Lymphocyte Count 2.29 X10^3/uL (0.83-4.51); Absolute Neutrophil Count 6.1 X10^3/uL (2.0-7.7); Basophil# 0.07 X10^3/uL; Basophil% 0.7 % (0-1); Eosinophil# 0.04 X10^3/uL; Eosinophils% 0.4 % (0-5); Hematocrit 40.8 % (40-54); Hemoglobin 13.6 g/dL (13.0-16.5); Lymphocyte # 2.29 X10^3/ul (0.83-4.51); Lymphocyte % 23.5 % (19-41); Mean Corp Hgb Conc 33.3 g/dL (32-36); Mean Corpuscular Volume 89.9 fL (80-94); Mean Platelet Vol. 10.4 fl (6.2-12.0); Monocyte# 1.12 X10^3/uL; Monocyte% 11.5 % (0-10); NRBC Flagged by Analyzer 0 % (0-5); Neutrophil # 6.09 X10^3/uL (2.7-7.7); Neutrophil % 62.5 % (47-70); Platelet Count 252 K/mm3 (150-450); RBC Distribution Width CV 14.6 % (11.6-14.6); RBC Distribution Width SD 47.6 fl (35.1-43.9); Red Blood Count 4.54 M/mm3 (4.6-6.2); White Blood Count 9.8 K/mm3 (4.4-11.0)
[2023-08-10 16:13] LABS: Partial Thromboplast Time 24.8 Seconds (24.1-36.2)
[2023-08-10 16:19] LABS: Prothrombin Time (Protime)PT. 13.5 SECONDS (11.7-14.9)
[2023-08-10 16:37] LABS: Bacteria 0 SEEN /hpf (None Seen); Mucous, Urine 0 SEEN /hpf (<or=2+); Red Blood Cells-Urine 0 SEEN /hpf (0-5); Squamous Epithelial Cells - UA 0 SEEN /hpf (0-5); White Blood Cells 0 SEEN /hpf (0-5)
[2023-08-10 16:39] LABS: BNP,B-Type NATRIURETIC PEPTIDE 29.6 pg/mL (0-100)
[2023-08-10 16:39] LABS: Color, Urine Yellow (Yellow); Glucose, Dipstick Normal (Normal); Ketone-Dipstick Negative (Negative); Leukocyte Esterase-Dipstick Negative /ul (Negative); Nitrite-Dipstick Negative (Negative); Occult Blood-Urine Negative /ul (Negative); Protein-Dipstick Negative (Negative); Urine Bilirubin Dipstick Negative (Negative); Urine Clarity Clear (Clear); Urine Urobilinogen Normal (Normal)
--- NOTE | 2023-08-10 16:41 | CT_ITS ---
STUDY: CTA Chest WO/W Contrast Injection 08/10/2023 5:33 PM REASON FOR EXAM: Male, 47 years old. pulmonary embolism TECHNIQUE: The examination was performed with the intravenous administration of IV 100mL Isovue-370 contrast material. Post-processing of the angiographic images was performed, with axial imaging and 3D reconstruction. MIPS images were obtained. Individualized dose optimization techniques were used for this CT. COMPARISON: None. FINDINGS: There are degenerative changes of the shoulders. There is no pneumothorax. There is no demonstrated pleural abnormality. Normal heart and pericardium with no evidence for calcifications of the coronary arteries. Normal mediastinum. Normal hilar regions. Normal pulmonary arteries. There is atherosclerotic calcification of the aortic arch with tortuosity and elongation of the aortic arch and descending thoracic aorta. There are multi-level degenerative changes of the thoracic spine. There are no acute findings of the upper abdomen. CT/CTA Chest W/WO Contrast IMPRESSION: No demonstrated pulmonary embolism or arterial dissection. There are no acute findings. Electronically Signed: Brandon Marlow MD at 17:35 EDT ,
[2023-08-10 16:43] LABS: ALB/GLOB Ratio 0.8 RATIO (0.9-2.4); AST(SGOT) 45 U/L (15-37); Alanine Aminotransfer ALT/SGPT 65 U/L (16-61); Albumin, Serum 3.6 g/dL (3.2-5.0); Alkaline Phosphatase 73 U/L (45-117); Anion Gap 5 (5-15); BUN 18 mg/dL (7-18); BUN/Creat Ratio 13.5 RATIO (10-20); Chloride 103 mmol/L (98-107); Creatinine, Serum 1.33 mg/dL (0.70-1.30); EST Glomerular Filtration Rate 61 mL/min (>60); Est Glom Filt Rate - Afr Amer 73 mL/min (>60); Globulin 4.6 g/dL (2.2-4.2); Glucose 122 mg/dL (74-106); Potassium 3.6 mmol/L (3.5-5.1); Protein, Total 8.2 g/dL (6.4-8.2); Sodium Level 139 mmol/L (136-145); Troponin-I HS 6 pg/mL (3.0-78.0)
[2023-08-10] MEDS: Furosemide 100 MG/10 ML Vial 60 MG IV (19:19)
== END 2023-08-10 19:31 | disposition home or self-care (01) ==
PROVIDERS: Emergency Provider Emergency Medicine; PCP Family Medicine; Visit Provider Emergency Medicine
DX: I89.0 Lymphedema, not elsewhere classified (principal); M79.604 Pain in right leg; M79.605 Pain in left leg; I10 Essential (primary) hypertension; F17.210 Nicotine dependence, cigarettes, uncomplicated; F17.220 Nicotine dependence, chewing tobacco, uncomplicated; E66.9 Obesity, unspecified; Z68.37 Body mass index [BMI] 37.0-37.9, adult; Z79.899 Other long term (current) drug therapy
CPT/HCPCS: 71045; 71275; 74177; 80053; 81001; 83880; 84484; 85025; 85610; 85730; 93005; 96374; 99283; Q9967; A4216; J1940

== ENCOUNTER → 2023-08-15 | Outpatient (CLI) | payer BC, SELFPAY ==
[2023-08-15 17:58] LABS: ALB/GLOB Ratio 0.8 RATIO (0.9-2.4); AST(SGOT) 34 U/L (15-37); Alanine Aminotransfer ALT/SGPT 54 U/L (16-61); Alkaline Phosphatase 75 U/L (45-117); Anion Gap 8 (5-15); BUN 36 mg/dL (7-18); BUN/Creat Ratio 27.7 RATIO (10-20); Calcium,Total 9.6 mg/dL (8.5-10.1); Chloride 95 mmol/L (98-107); EST Glomerular Filtration Rate 62 mL/min (>60); Est Glom Filt Rate - Afr Amer 75 mL/min (>60); GGTP 266 U/L (15-85); Globulin 5.1 g/dL (2.2-4.2); Glucose 105 mg/dL (74-106); Magnesium 2.2 mg/dL (1.6-2.6); Potassium 3.8 mmol/L (3.5-5.1); Protein, Total 9.1 g/dL (6.4-8.2); Sodium Level 134 mmol/L (136-145)
== END | disposition home or self-care (01) ==
LOC: MTLAB 16:13
PROVIDERS: PCP Family Medicine; Referring Provider Family Medicine; Visit Provider Family Medicine
DX: E87.6 Hypokalemia (principal); R60.0 Localized edema; R74.01 Elevation of levels of liver transaminase levels
CPT/HCPCS: 36415; 80053; 82977; 83735

== ENCOUNTER → 2024-01-23 | Outpatient (CLI) | payer BC, SELFPAY ==
--- NOTE | 2024-01-23 16:19 | RAD_ITS ---
HISTORY: chronic knee pain, occasional swelling. TECHNIQUE: XR Knee Complete 4 Views or More. COMPARISON: None. FINDINGS: BONES : No acute fracture identified. Small ossification of the medial femoral condyle. Mineralization unremarkable. JOINTS: No dislocation. Joint spaces maintained. RAD/Knee 4 or More Views IMPRESSION: No acute fracture or dislocation identified in the right knee. Electronically Signed: Keily Huston MD at 8:11 EDT ,
[2024-01-23 17:52] LABS: Absolute Lymphocyte Count 2.97 X10^3/uL (0.83-4.51); Absolute Neutrophil Count 5.7 X10^3/uL (2.0-7.7); Basophil# 0.06 X10^3/uL; Basophil% 0.6 % (0-1); Eosinophils% 1.9 % (0-5); Hematocrit 43.1 % (40-54); Hemoglobin 13.7 g/dL (13.0-16.5); Lymphocyte # 2.97 X10^3/ul (0.83-4.51); Lymphocyte % 28.8 % (19-41); Mean Corp Hgb Conc 31.8 g/dL (32-36); Mean Corpuscular Volume 94.5 fL (80-94); Mean Platelet Vol. 11.8 fl (6.2-12.0); Monocyte# 1.35 X10^3/uL; Monocyte% 13.1 % (0-10); NRBC Flagged by Analyzer 0 % (0-5); Neutrophil # 5.67 X10^3/uL (2.7-7.7); Platelet Count 249 K/mm3 (150-450); RBC Distribution Width CV 13.6 % (11.6-14.6); RBC Distribution Width SD 47.2 fl (35.1-43.9); Red Blood Count 4.56 M/mm3 (4.6-6.2); White Blood Count 10.3 K/mm3 (4.4-11.0)
[2024-01-23 17:58] LABS: ALB/GLOB Ratio 0.8 RATIO (0.9-2.4); AST(SGOT) 31 U/L (15-37); Alanine Aminotransfer ALT/SGPT 39 U/L (16-61); Albumin, Serum 3.6 g/dL (3.2-5.0); Alkaline Phosphatase 87 U/L (45-117); Anion Gap 4 (5-15); BUN 15 mg/dL (7-18); BUN/Creat Ratio 13.4 RATIO (10-20); Chloride 104 mmol/L (98-107); Creatinine, Serum 1.12 mg/dL (0.70-1.30); EST Glomerular Filtration Rate 74 mL/min (>60); Est Glom Filt Rate - Afr Amer 89 mL/min (>60); Globulin 4.8 g/dL (2.2-4.2); Glucose 109 mg/dL (74-106); Potassium 3.8 mmol/L (3.5-5.1); Protein, Total 8.4 g/dL (6.4-8.2); Rheumatoid Factor < 10.0 IU/mL (<15); Sodium Level 137 mmol/L (136-145); Uric Acid 8.3 mg/dL (3.5-7.2)
[2024-01-26 20:07] LABS: ANTINUCLEAR ANTIBODIES DIRECT Negative (Negative)
== END | disposition home or self-care (01) ==
LOC: MTLAB 16:19
PROVIDERS: PCP Family Medicine; Referring Provider Family Medicine; Visit Provider Family Medicine
DX: I10 Essential (primary) hypertension (principal); M25.561 Pain in right knee; G89.29 Other chronic pain
CPT/HCPCS: 36415; 73564; 80053; 84550; 85025; 86038; 86140; 86431

== ENCOUNTER 2024-09-14 06:38 | Emergency (ER) | payer SELFPAY ==
[2024-09-14 06:38] VITALS: BP 137/83; PULSE 90; RESP 20; TEMP 36.8; O2SAT 98; BMI 37.5
--- NOTE | 2024-09-14 07:07 | EKG12_ITS ---
Test Reason : CHEST PAIN Blood Pressure : */* mmHG Vent. Rate : 81 BPM Atrial Rate : 81 BPM P-R Int : 144 ms QRS Dur : 82 ms QT Int : 396 ms P-R-T Axes : 52 19 55 degrees QTcB Int : 460 ms Normal sinus rhythm Normal ECG Confirmed by Jhony Bloom ([id number]), editor book NANDO ZAMUDIO ([id number]) on 09/20/2024 11:27:21 AM Referred By: Confirmed By: Jhony Bloom
--- NOTE | 2024-09-14 07:08 | EDS_ITS ---
HPI History of Present Illness Chief Complaint: Chest Pain Narrative Narrative: Chief complaint and HPI: Chest pain. 49-year-old male presents for evaluation of midsternal chest pain. Symptoms have been ongoing for approximately 1 week. Describes it as sharp. Worse with movement and when he takes a deep breath in. 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 He denies any significant trauma. Past medical history is hypertension and tobacco abuse. Denies any fever, chills, shortness of breath, URI symptoms, nausea, vomiting. Patient states that he has been using Motrin intermittently which helps with the pain briefly. Review of systems: See HPI Medications: As listed on the chart Allergies: As listed on the chart PFSH: Per chart Vital signs: As listed on the chart. Reviewed. Physical exam: Gen: A&O x3, NAD Head: Normocephalic, atraumatic Eyes: No sclera icterus, conjunctiva clear ENT: Moist mucous membranes Neck: Trachea midline, No JVD CV: RRR, no murmurs, no peripheral edema, pain is reproducible with palpation of the costal angles where the ribs attach to the sternum mostly on the left Resp: Lungs CTA BL, no w/r/c GI: Abd soft, non-distended, non-tender, no r/r/g Musc: Full ROM, no deformity Skin: Warm, dry Neuro: Alert, oriented, grossly intact, sensation intact Psych: Cooperative, appropriate mood and affect [facility] Medical History Acute bronchitis, unspecified Acute maxillary sinusitis, unspecified Arthritis Contact with and (suspected) exposure to other viral communicable diseases Groin pain, chronic, left Hay fever Hypertension Home Medications ?Medication ?Instructions ?Recorded ?Last Taken ?Type diphenhydramine HCl 25 mg capsule 25 mg PO QHS 1 Unknown History (Benadryl) cetirizine 10 mg tablet (24Hour 20 mg PO DAILY PRN all ergy symptoms 08/10/23 Unknown History Allergy) ibuprofen 800 mg tablet (IBU) 800 mg PO Q8H 08/10/23 U nknown History omeprazole magnesium 20 mg 40 mg PO DAILY 08/10/23 Unk nown History tablet,delayed release (Prilosec OTC) simethicone 180 mg capsule (Gas 180 mg PO DAILY PRN ga s 08/10/23 Unknown History Relief (simethicone)) spironolactone 25 0.5 tab PO DAILY 08/10/23 Un known History mg-hydrochlorothiazide 25 mg tablet telmisartan 40 mg tablet 40 mg PO DAILY 08/10/23 Unkn own History allopurinol 100 mg tablet 100 mg PO DAILY 09/14/24 Unk nown History atenolol 50 mg tablet 50 mg PO DAILY 09/14/24 Unkn own History furosemide 40 mg tablet (Lasix) 40 mg PO MOFR 09/14/24 Unknown History thiamine HCl (vitamin B1) 100 mg 100 mg PO DAILY 09/14 Unknown History tablet Allergy/AdvReac Type Severity Reaction Status Date / Time cat dander Allergy Mild NEEDS Verified 09/14/24 06:41 FOLLOW-UP Environmental Allergies: Allergy Mild NEEDS Verified 09/14/24 06:41 Uncoded (dust) FOLLOW-UP
--- NOTE | 2024-09-14 07:08 | ED.VIS.CHEST ---
HPI History of Present Illness Chief Complaint: Chest Pain Narrative Narrative: Chief complaint and HPI: Chest pain. 49-year-old male presents for evaluation of midsternal chest pain. Symptoms have been ongoing for approximately 1 week. Describes it as sharp. Worse with movement and when he takes a deep breath in. 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 He denies any significant trauma. Past medical history is hypertension and tobacco abuse. Denies any fever, chills, shortness of breath, URI symptoms, nausea, vomiting. Patient states that he has been using Motrin intermittently which helps with the pain briefly. Review of systems: See HPI Medications: As listed on the chart Allergies: As listed on the chart PFSH: Per chart Vital signs: As listed on the chart. Reviewed. Physical exam: Gen: A&O x3, NAD Head: Normocephalic, atraumatic Eyes: No sclera icterus, conjunctiva clear ENT: Moist mucous membranes Neck: Trachea midline, No JVD CV: RRR, no murmurs, no peripheral edema, pain is reproducible with palpation of the costal angles where the ribs attach to the sternum mostly on the left Resp: Lungs CTA BL, no w/r/c GI: Abd soft, non-distended, non-tender, no r/r/g Musc: Full ROM, no deformity Skin: Warm, dry Neuro: Alert, oriented, grossly intact, sensation intact Psych: Cooperative, appropriate mood and affect [facility] Medical History Acute bronchitis, unspecified Acute maxillary sinusitis, unspecified Arthritis Contact with and (suspected) exposure to other viral communicable diseases Groin pain, chronic, left Hay fever Hypertension Home Medications ?Medication ?Instructions ?Recorded ?Last Taken ?Type diphenhydramine HCl 25 mg capsule 25 mg PO QHS 04/23/20 Unknown History (Benadryl) cetirizine 10 mg tablet (24Hour 20 mg PO DAILY PRN allergy symptoms 08/10/23 Unknown History Allergy) ibuprofen 800 mg tablet (IBU) 800 mg PO Q8H 08/10/23 Unknown History omeprazole magnesium 20 mg 40 mg PO DAILY 08/10/23 Unknown History tablet,delayed release (Prilosec OTC) simethicone 180 mg capsule (Gas 180 mg PO DAILY PRN gas 08/10/23 Unknown History Relief (simethicone)) spironolactone 25 0.5 tab PO DAILY 08/10/23 Unknown History mg-hydrochlorothiazide 25 mg tablet telmisartan 40 mg tablet 40 mg PO DAILY 08/10/23 Unknown History allopurinol 100 mg tablet 100 mg PO DAILY 09/14/24 Unknown History atenolol 50 mg tablet 50 mg PO DAILY 09/14/24 Unknown History furosemide 40 mg tablet (Lasix) 40 mg PO MOFR 09/14/24 Unknown History thiamine HCl (vitamin B1) 100 mg 100 mg PO DAILY 09/14/24 Unknown History tablet Allergy/AdvReac Type Severity Reaction Status Date / Time cat dander Allergy Mild NEEDS Verified 09/14/24 06:41 FOLLOW-UP Environmental Allergies: Allergy Mild NEEDS Verified 09/14/24 06:41 Uncoded (dust) FOLLOW-UP Penicillins AdvReac Mild Hives Verified 09/14/24 06:41 Surgical History History of hernia repair S/P tonsillectomy Social History Smoking Status: Current every day smoker tobacco type: cigarettes Smokeless tobacco user: chewing tobacco alcohol intake: current alcohol intake frequency: 3 or more drinks per day Alcohol type: beer and hard liquor EXAM Physical Exam Const Vital Signs: 09/14/24 06:38 09/14/24 06:44 09/14/24 08:38 Temperature 98.3 F Temperature Source Oral Pulse Rate 90 76 Respiratory Rate 20 H 16 Respiratory Effort Normal Blood Pressure 137/83 H 119/79 Blood Pressure Mean 101 92 Pulse Ox 98 98 Oxygen Delivery Method Room Air 09/14/24 09:00 Temperature Temperature Source Pulse Rate 69 Respiratory Rate 23 H Respiratory Effort Blood Pressure 118/81 H Blood Pressure Mean 93 Pulse Ox 98 Oxygen Delivery Method Room Air MDM MDM MDM Narrative Medical decision making narrative: 49-year-old male presents for evaluation of midsternal chest pain. History of HTN and tobacco abuse. Symptoms have been ongoing for approximately 1 week. Sharp. Worse with deep inspiration and movement. Physical exam is unremarkable accepted reproducible chest wall pain. I suspect patient's pain is secondary to costochondritis however without further workup I am unable to rule out ACS, PE, arrhythmia, pneumonia, bronchitis however suspect less likely for these differentials. Toradol ordered for pain. Cardiac workup ordered. Patient is low risk for PE given the Wells criteria however given his age cannot rule out via PERC. D-dimer will be ordered. EKG and chest x-ray reviewed see below. CBC with mild leukocytosis 11.3. No anemia. BMP relatively unremarkable. Troponin unremarkable. Given patient's chest pain is reproducible and ongoing for a week, I have low suspicion for ACS and therefore delta troponin will not be ordered. D-dimer elevated at 0.88. This is above his age-adjusted. Although I have low suspicion, cannot rule out PE. I spoke to the patient extensively about this, he is in agreement to a CTA chest. Will give NS bolus to help with contrast load. CT of the chest negative for PE. No acute abnormality. At this point in time, I suspect patient's pain is secondary to costochondritis. Patient was educated on refraining from lifting anything heavy. Ibuprofen and Tylenol as needed for pain. Follow-up with PCP. He confirmed understanding the plan. Return precautions explained. EKG: Interpreted by me/EM physician: EKG shows normal sinus rhythm without any acute ischemic changes. Heart rate 81. Diagnostic: Interpreted by me/EM physician: Chest x-ray without pneumonia, effusion, cardiomegaly, pneumothorax. Radiology in agreement. Impression: 1. Chest wall pain/costochondritis Lab Data Labs: Laboratory Results - last 24 hr 09/14/24 06:49 WBC 11.3 H RBC 4.78 Hgb 14.2 Hct 42.5 MCV 88.9 MCH 29.7 MCHC 33.4 RDW Std Deviation 41.0 RDW Coeff of Wendy 12.5 Plt Count 280 MPV 11.2 Immature Gran % (Auto) 0.700 Neut % (Auto) 53.4 Lymph % (Auto) 27.6 [place] % (Auto) 14.1 H Eos % (Auto) 3.3 Baso % (Auto) 0.9 Absolute Neuts (auto) 6.0 Absolute Lymphs (auto) 3.11 Nucleated RBC % 0 Platelet Estimate A RBC Morphology NORM C+C D-Dimer Quant (PE/DVT) 0.88 H* Sodium 137 Potassium 4.3 Chloride 97 L Carbon Dioxide 27.5 Anion Gap 12 BUN 19 Creatinine 1.07 Estim Creat Clear Calc 105.36 Est GFR (MDRD) Non-Af 84 BUN/Creatinine Ratio 17.5 Glucose 101 H Calcium 9.3 Troponin T High Sens < 6 Radiography Diagnostic Testing: Clinical Impression(s) from Imaging Studies Chest X-Ray 09/14/24 07:17 IMPRESSION: No evidence of acute disease. Reading Location: [id number] Chest CTA 09/14/24 08:57 IMPRESSION: There is no visible pulmonary embolus. No acute process is identified in the chest. Reading Location: [facility] Discharge Plan Triage Chief Complaint: Chest Pain ED Provider: Crow White Dx/Rx/DC Orders Clinical Impression: Costochondritis Instructions: ED Chest Pain, Noncardiac, ED Chest Wall Pain, Costochondritis Prescriptions: No Action diphenhydramine HCl [Benadryl] 25 mg capsule 25 mg PO QHS cetirizine [24Hour Allergy] 10 mg tablet 20 mg PO DAILY PRN (Reason: allergy symptoms) omeprazole magnesium [Prilosec OTC] 20 mg tablet,delayed release (DR/EC) 40 mg PO DAILY simethicone [Gas Relief (simethicone)] 180 mg capsule 180 mg PO DAILY PRN (Reason: gas) spironolacton-hydrochlorothiaz 25-25 mg tablet 0.5 tab PO DAILY telmisartan 40 mg tablet 40 mg PO DAILY ibuprofen [IBU] 800 mg tablet 800 mg PO Q8H thiamine HCl (vitamin B1) 100 mg tablet 100 mg PO DAILY atenolol 50 mg tablet 50 mg PO DAILY furosemide [Lasix] 40 mg tablet 40 mg PO MOFR allopurinol 100 mg tablet 100 mg PO DAILY Primary Care Provider: Robbie Villar Referrals: Robbie Villar MD [Primary Care Provider] - 3-5 Days Activity Restrictions/Additional Instructions: Follow-up with primary care physician. Ibuprofen and Tylenol as needed for pain. Return back to the ED if symptoms change or worsen Print Language: Bhutanese Disposition Disposition: Home, Self Care
--- NOTE | 2024-09-14 07:17 | RAD_ITS ---
PROCEDURE: CHEST PA AND LATERAL 09/14/2024 REASON FOR EXAM: CHEST PAIN TECHNIQUE: Frontal and lateral views of the chest. COMPARISON: None available FINDINGS: The lungs appear clear. Pulmonary vascularity appears within limits. No pleural effusion. The cardiac and mediastinal contours appear within limits. The visualized osseous structures appear within limits. RAD/Chest PA and Lateral IMPRESSION: No evidence of acute disease. Reading Location: [id number]
[2024-09-14] MEDS: Ketorolac 30 MG/ML Syringe IV (07:38)
[2024-09-14 07:49] LABS: Troponin T High Sensitivity < 6 ng/L (<=22)
[2024-09-14 07:50] LABS: Anion Gap 12 (5-15); BUN 19 mg/dL (4-19); BUN/Creat Ratio 17.5 RATIO (10-20); Calcium,Total 9.3 mg/dL (7.6-11.0); Carbon Dioxide 27.5 mmol/L (21.0-32.0); Chloride 97 mmol/L (98-108); Creatinine, Serum 1.07 mg/dL (0.70-1.20); EST Glomerular Filtration Rate 84 (>60); Estimated Creatinine Clearance 105.36 ml/min (50-250); Glucose 101 mg/dL (70-99); Potassium 4.3 mmol/L (3.3-5.1); Sodium Level 137 mmol/L (133-145)
[2024-09-14 08:03] LABS: Absolute Lymphocyte Count 3.11 X10^3/uL (0.83-4.51); Basophil% 0.9 % (0-1); Eosinophil# 0.37 X10^3/uL; Eosinophils% 3.3 % (0-5); Hematocrit 42.5 % (40-54); Hemoglobin 14.2 g/dL (13.0-16.5); Lymphocyte # 3.11 X10^3/ul (0.83-4.51); Lymphocyte % 27.6 % (19-41); Mean Corp Hgb Conc 33.4 g/dL (32-36); Mean Corpuscular Hgb 29.7 pg (27.0-32.0); Mean Corpuscular Volume 88.9 fL (80-94); Mean Platelet Vol. 11.2 fl (6.2-12.0); Monocyte# 1.59 X10^3/uL; Monocyte% 14.1 % (0-10); NRBC Flagged by Analyzer 0 % (0-5); Neutrophil # 6.01 X10^3/uL (2.7-7.7); Neutrophil % 53.4 % (47-70); POSITIVE DIFFERENTIAL YES; Platelet Count 280 K/mm3 (150-450); RBC Distribution Width CV 12.5 % (11.6-14.6); Red Blood Count 4.78 M/mm3 (4.6-6.2); White Blood Count 11.3 K/mm3 (4.4-11.0)
[2024-09-14 08:07] LABS: Differential Indicated SCAN CRITERIA MET
[2024-09-14 08:38] VITALS: BP 119/79; PULSE 76; RESP 16; O2SAT 98
[2024-09-14 08:41] LABS: Platelet Estimate A (ADEQ); Red Cell Morphology NORM C+C NORMAL (NORM C&C)
[2024-09-14 08:52] LABS: D-Dimer Quantitative (DVT/PE) 0.88 FEU/ug/m (0.27-0.49)
--- NOTE | 2024-09-14 08:57 | CT_ITS ---
PROCEDURE: CTA CHEST W/WO CONTRAST 09/14/2024 REASON FOR EXAM: Chest pain for a week TECHNIQUE: CTA axial imaging of the chest with intravenous contrast. Multiplanar and multisequence images were obtained. PATIENT PREPARATION: Per protocol CONTRAST: 99 cc Isovue 370 One or more dose reduction techniques were used (e.g., Automated exposure control, adjustment of the mA and/or kV according to patient size, use of iterative reconstruction technique). RADIATION DOSE SUMMARY: DLP: 513.3 mGycm . COMPARISON: September 14, 2024 x-ray FINDINGS: Hardware: None Lymph nodes: No pathologic adenopathy by size criteria. Heart: Within normal limits RV/LV Diameter Ratio: 0.8 Thoracic Aorta: Unremarkable. Minimal atherosclerotic calcifications are present. Pulmonary Vessels: Main pulmonary artery Hounsfield units = 330. There is no visible pulmonary embolus. Lungs and Airways: Clear Pleura: There is no pneumothorax or effusion Upper Abdomen: Unremarkable Bones: There is no acute bony abnormality. CT/CTA Chest W/WO Contrast IMPRESSION: There is no visible pulmonary embolus. No acute process is identified in the chest. Reading Location: [facility]
[2024-09-14 09:00] VITALS: BP 118/81; PULSE 69; RESP 23; O2SAT 98
[2024-09-14] MEDS: 0.9% Normal Saline (1000mL) 1,000 ML 999 ML IV (09:03)
[2024-09-14 10:00] VITALS: BP 128/74; PULSE 78; RESP 16; TEMP 37.1; O2SAT 99
== END 2024-09-14 10:07 | disposition home or self-care (01) ==
PROVIDERS: Emergency Provider Surgery; PCP Family Medicine; Visit Provider Surgery
DX: M94.0 Chondrocostal junction syndrome [Tietze] (principal); I10 Essential (primary) hypertension; F17.210 Nicotine dependence, cigarettes, uncomplicated; F17.220 Nicotine dependence, chewing tobacco, uncomplicated; Z79.899 Other long term (current) drug therapy
CPT/HCPCS: 71046; 71275; 80048; 84484; 85025; 85379; 93005; 96361; 96374; 99283; Q9967; A4216

== ENCOUNTER → 2025-03-02 | Outpatient (CLI) | payer BC, SELFPAY ==
[2025-03-02 18:24] LABS: AST(SGOT) 36 U/L (<=37); Alanine Aminotransfer ALT/SGPT 39 U/L (<=46); Albumin, Serum 4.2 g/dL (3.5-5.0); Alkaline Phosphatase 78 U/L (40-129); Anion Gap 12 (5-15); BUN 22 mg/dL (4-19); BUN/Creat Ratio 18.3 RATIO (10-20); Calcium,Total 9.2 mg/dL (7.6-11.0); Carbon Dioxide 26.7 mmol/L (21.0-32.0); Chloride 101 mmol/L (98-108); Globulin 4.0 g/dL (2.2-4.2); Glucose 93 mg/dL (70-99); Potassium 3.5 mmol/L (3.3-5.1); Uric Acid 7.4 mg/dL (3.5-7.2)
[2025-03-04 07:07] LABS: Prealbumin 29 mg/dL (10-36)
== END | disposition home or self-care (01) ==
PROVIDERS: PCP Family Medicine; Referring Provider Family Medicine; Visit Provider Family Medicine
DX: I10 Essential (primary) hypertension (principal); M10.9 Gout, unspecified; M79.89 Other specified soft tissue disorders
CPT/HCPCS: 36415; 80053; 84134; 84550